=== PATIENT | female | born 1980 | race Caucasian/White ===

== ENCOUNTER → 2021-10-07 07:28 | Outpatient (REF) | payer OTHER, SELFPAY | LOC: ANHLAB 07:28 | PROVIDERS: PCP Family Medicine; Visit Provider Surgery Plastic and Reconstructive Surgery | DX: R22.9 Localized swelling, mass and lump, unspecified (principal); D23.9 Other benign neoplasm of skin, unspecified | CPT/HCPCS: 88304; 88305; 88342 ==